=== PATIENT | male | born 1955 | race Caucasian/White ===

== ENCOUNTER 2020-11-19 20:54 | Emergency (ER) | payer MEDICARE ==
[~2020-11-19 20:54] MED LIST: HUMALOG MI100 UNIT/4 SC; LISINOPRIL10 MG PO; LOPRESSOR 50 MG50 MG PO; NORCO 7.5-3251 EACH PO; NORVASC 5 MG TAB5 MG PO; NOVOLOG 10100 UNITS1 INJ
[2020-11-19 22:36] LABS: HEMOGLOBIN 11.8 gm/dl (14.0-17.5); RED BLOOD COUNT 4.11 M/UL (4.20-5.50); WHITE BLOOD COUNT 6.6 K/UL (4.5-11.0)
[2020-11-19 22:59] LABS: BUN/CREATININE RATIO 29 (0-10)
== END 2020-11-20 02:20 | disposition short-term general hospital (02) ==
LOC: ER1 20:54
PROVIDERS: Physician Assistant
DX: R25.9 Unspecified abnormal involuntary movements (principal); R53.1 Weakness; I49.3 Ventricular premature depolarization; F31.9 Bipolar disorder, unspecified; Z88.5 Allergy status to narcotic agent; Z20.822 Contact with and (suspected) exposure to COVID-19
CPT/HCPCS: 70450; 71045; 80053; 82140; 82330; 82550; 82553; 83735; 83874; 84484; 85025; 93005; 96374; 96375; 99284; G0480; J0515; J1200; U0002

== ENCOUNTER 2020-11-22 16:37 | Emergency (ER) | payer MEDICARE ==
[~2020-11-22] VITALS: Ht 182.9 cm; Wt 86.6 kg
[2020-11-22 18:24] LABS: HEMOGLOBIN 11.7 gm/dl (14.0-17.5); RED BLOOD COUNT 4.1 M/UL (4.20-5.50)
[2020-11-22 18:28] LABS: WHITE BLOOD COUNT 4.8 K/UL (4.5-11.0)
[2020-11-23 05:28] LABS: RED BLOOD COUNT 3.79 M/UL (4.20-5.50)
[2020-11-23 05:49] LABS: BUN/CREATININE RATIO 30 (0-10)
== END 2020-11-23 10:50 | disposition other institution (70) ==
LOC: ER1 16:37
PROVIDERS: Emergency Medicine; Internal Medicine
DX: K22.3 Perforation of esophagus (principal); E11.9 Type 2 diabetes mellitus without complications; I10 Essential (primary) hypertension; Z88.5 Allergy status to narcotic agent; Z20.822 Contact with and (suspected) exposure to COVID-19
CPT/HCPCS: 71250; 71260; 80048; 80053; 83690; 85025; 96365; 96375; 96376; 99285; J2543; Q9963; Q9967; U0002